=== PATIENT | male | born 1945 | race Caucasian/White ===

== ENCOUNTER → 2017-08-13 | Outpatient (CLI) | payer MEDICARE, BC ==
[2017-08-13 12:10] VITALS: BP 193/86; PULSE 59; RESP 20; TEMP 98.4; BMI 29.9
[2017-08-13 13:17] LABS: INR 1.1 (<1.2); Partial Thromboplastin Time 25.9 sec (22.0-30.0); Prothrombin Time 11.2 sec (9.0-12.0)
[2017-08-13 13:33] LABS: ALT 31 U/L (21-72); AST 25 U/L (17-59); Alkaline Phosphatase 75 U/L (38-126); Anion Gap 8 mmol/L; Blood Urea Nitrogen 15 mg/dL (9-20); Calcium 9.3 mg/dL (8.4-10.2); Carbon Dioxide 26 mmol/L (22-30); Chloride 104 mmol/L (98-107); Cholesterol 183 mg/dL (<200); Glucose 96 mg/dL (74-99); HDL Cholesterol 69 mg/dL (40-60); Iron 81 ug/dL (49-181); Magnesium 1.9 mg/dL (1.6-2.3); Non-African American GFR(MDRD) >60 (>60 ml/min/1.73 sqM); Phosphorus 3.2 mg/dL (2.5-4.5); Sodium 138 mmol/L (137-145); Total Bilirubin 0.5 mg/dL (0.2-1.3); Total Protein 6.6 g/dL (6.3-8.2)
[2017-08-13 13:46] LABS: % Iron Saturation 27.5 % (20-50); Total Iron Binding Capacity 295 ug/dL (261-462)
[2017-08-13 13:52] LABS: CH 31.6; CHCM 34.1; HCT 45.3 % (39.0-53.0); HDW 2.46; HGB 14.7 gm/dL (13.0-17.5); MCH 30.2 pg (25.0-35.0); MCHC 32.4 g/dL (31.0-37.0); MCV 93.1 fL (80.0-100.0); Mean Platelet Volume 6.9; RBC 4.87 m/uL (4.30-5.90); RDW 13.9 % (11.5-15.5); WBC 5.2 k/uL (3.8-10.6)
[2017-08-13 14:15] LABS: Vitamin B12 526 pg/mL
[2017-08-14 11:52] LABS: Hemoglobin A1C 5.2 % (4.2-6.1)
[2017-08-18 17:37] LABS: Selenium 111 mcg/L (63-160)
--- NOTE | 2017-08-30 15:55 | P.PN ---
Progress Note - Text DATE OF SERVICE: 08/13/2017 CHIEF COMPLAINT: Follow up sleeve gastrectomy. HISTORY OF PRESENT ILLNESS: Mr. Ignacio Fuentes is a very pleasant 71-year-old gentleman who underwent a sleeve gastrectomy in July 2014. At his height of 5 foot 8, he had weighed 313 pounds. His body mass index was 47.7. Today, he comes in weighing 196 pounds. He has lost 117 pounds. His percent excess weight loss is 78% in 3 years. Since his visit June 2015, he has lost another 10 pounds. He is 33 pounds overweight. He reports foul smelling flatulence. He often eats eggs and cheese. He avoids eating green foods. He denies constipation. Denies any abdominal pain. No reports of gastroesophageal reflux disease. He has tried multiple remedies to address his flatulence. PAST MEDICAL HISTORY: 1. Resolved diabetes. 2. Resolved hypertension. 3. Resolved dyslipidemia. 4. Osteoarthritis of the lower back and joints. 5. History of psoriasis. 6. Psoriasis. 7. Benign prostatic hypertrophy. 8. Gastroesophageal reflux disease. 9. Hypotestosteronism. 10. Morbid obesity. 11. Obstructive sleep apnea. 12. History of right groin pseudoaneurysm. PAST SURGICAL HISTORY: 1. EGD. 2. Colonoscopy. 3. Removal of tumor along the neck. 4. Sleeve gastrectomy. 5. Upper endoscopy with balloon dilatation. 6. Cardiac catheterization with stent placement x3. 7. Status post sleeve gastrectomy. MEDICATIONS: 1. Multivitamin. 2. Enbrel. 3. Vitamin D. 4. Pravachol. 5. Vitamin A. ALLERGIES: 1. CIPROFLOXACIN. 2. CLINDAMYCIN. SOCIAL HISTORY: He is . He is a remote smoker. Denies any illicit drug use. FAMILY HISTORY: Denies any Crohn disease, ulcerative colitis or gluten allergies. REVIEW OF SYSTEMS: CONSTITUTIONAL: At his height of 5 foot 8, he had weighed 313 pounds. His body mass index was 47.7. Today, he comes in weighing 196 pounds. He has lost 117 pounds. His percent excess weight loss is 78% in 3 years. Since his visit June 2015, he has lost another 10 pounds. He is 33 pounds overweight. ENDOCRINE: Resolved diabetes type 2. No thyroid disorder. CARDIOVASCULAR: Resolved hypertension. He is back on cholesterol medications. GASTROINTESTINAL: No gastroesophageal reflux disease. Has moderate flatulence. HEENT: Denies any troubles with hearing. No troubles with vision. RESPIRATORY: History of obstructive sleep apnea, resolved. No reports of pneumonias. MUSCULOSKELETAL: Resolution of osteoarthritis of the lower back and joints. No reports of bilateral lower extremity edema. NEURO: No reports of a headache or seizure disorders. PSYCH: No reports of depression or suicidal ideation. SKIN: History of psoriasis, improving. HEMATOLOGIC: Denies any easy bruising or bleeding. PHYSICAL EXAM: VITAL SIGNS: 5 foot 8, 196 pounds. Body mass index 29.9. Vital Signs Temp 98.4 F 08/13/17 11:37 Pulse 59 L 08/13/17 11:37 Resp 20 08/13/17 11:37 BP 193/86 08/13/17 11:37 Pulse Ox GENERAL: Well-developed pleasant male in no acute distress. ABDOMEN: Soft, nontender, nondistended. CHEST: Prominence of the xiphoid, nontender. Nonlabored respirations with equal bilateral excursions. HEENT: Extraocular movements intact. Moist buccal mucosa. Hears conversational speech. No nasal drainage. NECK: Supple without lymphadenopathy. CARDIOVASCULAR: Regular rate and rhythm. Radial pulses 2+. MUSCULOSKELETAL: No clubbing, cyanosis, or edema. NEURO: No focal or lateralizing signs. Cranial nerves II-12 grossly intact. PSYCH: Appropriate affect. Alert and oriented to person, place and time. SKIN: Good skin turgor. Well perfused. LABS: Pending. ASSESSMENT: 1. History of morbid obesity due to excess calories, resolved. 2. Body mass index reduced from 47.7 to 29.9. 3. Status post sleeve gastrectomy. 4. History of psoriasis. 5. Status post massive weight loss, 117 pounds. 6. Resolved diabetes type 2. 7. Hyperlipidemia. 8. Recurrent hypertension. PLAN: 1. Recommend bariatric labs. 2. His blood pressure was severely high. Recommend repeat blood pressure at home. 3. With his moderate to severe flatulence, this may be indicative of food ALLERGY. Will benefit from evaluation and referral to an video games mechanic. 4. Follow-up in [place] in 2 weeks. ADDENDUM: His TSH level is suppressed. Recommend evaluation by shaft mechanic. His vitamin A level is low. Recommend supplement of 8000 units daily. Laboratory Last Values WBC 5.2 k/uL (3.8-10.6) 08/13/17 12:46 RBC 4.87 m/uL (4.30-5.90) 08/13/17 12:46 Hgb 14.7 gm/dL (13.0-17.5) 08/13/17 12:46 Hct 45.3 % (39.0-53.0) 08/13/17 12:46 MCV 93.1 fL (80.0-100.0) 08/13/17 12:46 MCH 30.2 pg (25.0-35.0) 08/13/17 12:46 MCHC 32.4 g/dL (31.0-37.0) 08/13/17 12:46 RDW 13.9 % (11.5-15.5) 08/13/17 12:46 Plt Count 256 k/uL (150-450) 08/13/17 12:46 PT 11.2 sec (9.0-12.0) 08/13/17 12:46 INR 1.1 (<1.2) 08/13/17 12:46 APTT 25.9 sec (22.0-30.0) 08/13/17 12:46 Sodium 138 mmol/L (137-145) 08/13/17 12:46 Potassium 4.0 mmol/L (3.5-5.1) 08/13/17 12:46 Chloride 104 mmol/L (98-107) 08/13/17 12:46 Carbon Dioxide 26 mmol/L (22-30) 08/13/17 12:46 Anion Gap 8 mmol/L 08/13/17 12:46 BUN 15 mg/dL (9-20) 08/13/17 12:46 Creatinine 0.70 mg/dL (0.66-1.25) 08/13/17 12:46 Est GFR (MDRD) Af Amer >60 (>60 ml/min/1.73 sqM) 08/13/17 12:46 Est GFR (MDRD) Non-Af >60 (>60 ml/min/1.73 sqM) 08/13/17 12:46 Glucose 96 mg/dL (74-99) 08/13/17 12:[address] Glu mg/dL 103 mg/dL 08/13/17 12:46 Hemoglobin A1c 5.2 % (4.2-6.1) 08/13/17 12:46 Calcium 9.3 mg/dL (8.4-10.2) 08/13/17 12:46 Phosphorus 3.2 mg/dL (2.5-4.5) 08/13/17 12:46 Magnesium 1.9 mg/dL (1.6-2.3) 08/13/17 12:46 Iron 81 ug/dL (49-181) 08/13/17 12:46 TIBC 295 ug/dL (261-462) 08/13/17 12:46 % Saturation 27.5 % (20-50) 08/13/17 12:46 Ferritin 56.9 ng/mL (22.0-322.0) 08/13/17 12:46 Total Bilirubin 0.5 mg/dL (0.2-1.3) 08/13/17 12:46 AST 25 U/L (17-59) 08/13/17 12:46 ALT 31 U/L (21-72) 08/13/17 12:46 Alkaline Phosphatase 75 U/L (38-126) 08/13/17 12:46 Total Protein 6.6 g/dL (6.3-8.2) 08/13/17 12:46 Albumin 3.8 g/dL (3.5-5.0) 08/13/17 12:46 Prealbumin 19.0 mg/dL (18.0-42.0) 08/13/17 12:46 Triglycerides 54 mg/dL (<150) 08/13/17 12:46 Cholesterol 183 mg/dL (<200) 08/13/17 12:46 LDL Cholesterol, Calc 103 mg/dL (0-99) H 08/13/17 12:46 HDL Cholesterol 69 mg/dL (40-60) H 08/13/17 12:46 Vitamin A 35 ug/dL (38-106) L 08/13/17 12:46 Vitamin B1 56 ug/L (38-122) 08/13/17 12:46 Vitamin B12 526 pg/mL 08/13/17 12:46 Vitamin D 25-Hydroxy 44.0 ng/mL (30.0-100.0) 08/13/17 12:46 Folate >24.0 ng/mL 08/13/17 12:46 TSH 0.243 mIU/L (0.465-4.680) L 08/13/17 12:46 PTH Intact 34.0 pg/mL (14.0-72.0) 08/13/17 12:46 Copper 889 ug/L (665-1480) 08/13/17 12:46 Selenium 111 mcg/L (63-160) 08/13/17 12:46 Zinc 88 ug/dL (60-130) 08/13/17 12:46
== END | disposition home or self-care (01) ==
LOC: BARWHC3 10:13
PROVIDERS: ATTEND Surgery Plastic and Reconstructive Surgery
DX: Z09 Encounter for follow-up examination after completed treatment for conditions other than malignant neoplasm (principal); E78.5 Hyperlipidemia, unspecified; I10 Essential (primary) hypertension; M47.816 Spondylosis without myelopathy or radiculopathy, lumbar region; Z88.1 Allergy status to other antibiotic agents; Z87.2 Personal history of diseases of the skin and subcutaneous tissue; Z98.84 Bariatric surgery status
CPT/HCPCS: 84255; 84134; 84425; 80061; 80053; 82607; 82728; 83036; 82525; 82746; 83540; 83550; 83735; 84100; 84443; 84590; 84630; 85027; 85610; 85730; 82306; 83970; 36415; G0463; 99211